=== PATIENT | male | born 1975 | race Caucasian/White ===

== ENCOUNTER 2016-12-21 08:36 | Day surgery (SDC) | payer OTHER ==
--- NOTE | 2016-12-17 18:47 | CONS ---
Date/Time of Note Date/Time of Note DATE: 12/17/16 TIME: 18:38 Assessment/Plan Assessment/Plan Problems: (1) Rotator cuff tear, left Status: Chronic Comment: Operative consultation prior to repair.-At this time I find Mr. Angulo to be an acceptable surgical candidate and concur with your plans to proceed with surgery now that he is been seen by cardiology. His initial EKG had some modest changes and to be thorough and protective we had him checked out. Dr. Taylor was gracious enough to do this in an expeditious fashion is now cleared for surgery as an average surgical risk as compared to his age- matched peers. Qualifiers: Qualified Code: M75.102 - Tear of left rotator cuff, unspecified tear extent (2) Diabetes mellitus type 2 in nonobese Status: Chronic Comment: Will continue on his medication regimen. (3) Nonalcoholic fatty liver disease without nonalcoholic steatohepatitis (GOOD) Status: Chronic Comment: Noted. (4) Osteoarthritis Status: Chronic Comment: Noted. Qualifiers: Qualified Code: M19.91 - Primary osteoarthritis, unspecified site Consultation Date/Type/Reason Admit Date/Time December 21 2016 Date of Consultation: Dec 16, 2016 Type of Consultation: Preoperative medical consultat Reason for Consultation Preop for medical clearance prior to elective surgery Referring Provider: FELIPA CRANE MD Hx of Present Illness Charming 41-year-old [place] Citizen male being brought in electively for repair left shoulder rotator cuff injury. Please note I had him seen by cardiology for clearance as well. He has been cleared for surgery Constitutional: no complaints Eyes: no complaints ENT: no complaints Respiratory: no complaints Cardiovascular: no complaints (Recent states he is able to climb several flights of stairs.) Gastrointestinal: no complaints Genitourinary: no complaints Musculoskeletal: no complaints Skin: no complaints Neurologic: no complaints Endocrine: no complaints Lymphatic: no complaints Psychological: nl mood/affect, no complaints Immunologic: no complaints Past Medical History 1) diabetes mellitus type 2, 2) nonalcoholic fatty liver disease, 3) osteoarthritis, 4) lumbar disc disease, 5) left shoulder torn rotator cuff, 6) usual childhood diseases Past Surgical History Past Surgical Hx: no surgical history Family History Significant Family History: diabetes, hypertension, other (NO Family history of anesthesia reactions) Social History Alcohol Use: none Smoking Status: Never smoker Drug Use: none Other Social History Born in [place] and raised. Lived in the [place] for [place] years. He lives with spouse, mother, brothers. Professional dispatcher motor vehicle. Exam/Review of Systems Vital Signs Vitals Blood pressure 120/70; pulse 88; temperature 98.0; height 5 feet 8 inches; weight 204.2 pounds Exam Constitutional: alert, oriented Psych: nl mood/affect, no complaints Head: atraumatic, normocephalic Eyes: EOMI, nl conjunctiva, nl lids, nl sclera ENMT: mucosa pink and moist, nl external ears & nose, nl lips & teeth, nl nasal mucosa & septum Neck: non-tender, supple Respiratory: clear to auscultation, normal air movement Cardiovascular: S4, nl pulses, regular rate and rhythm Gastrointestinal: nl liver, spleen, non-tender, soft Musculoskeletal: nl extremities to inspection, nl gait and stance, other (Good range of motion of the left shoulder) Extremities: normal pulses Neurological: RN TELEMETRY II-XII intact, nl mental status, nl speech, nl strength Skin: nl turgor, rash or lesions Results Lab tests demonstrated blood sugar of 135 normal CBC normal renal function normal coags. Please see faxed results. Copies To: CC: FELIPA CRANE MD; GAGE TAYLOR MD, JOSHUA A MD Dec 17, 2016 18:47
[2016-12-21] VITALS (18 sets, daily range): BP systolic 126–157; BP diastolic 78–100; PULSE 87–106; RESP 12–22; Ht 172.7 cm; Wt 90.4 kg
[~2016-12-21] VITALS: Ht 172.7 cm; Wt 90.4 kg
[2016-12-21] MEDS ORDERED: METF1000 PO (09:38)
[2016-12-21] MEDS ORDERED: GLIP5TAB13 PO (09:39)
[2016-12-21] MEDS ORDERED: MIDAZOLAM 1 MG/ML 2 ML INJ ONE (11:44)
[2016-12-21] MEDS ORDERED: FENTAnyl 50 MCG/ML VIAL ONE ×3 (11:45→15:59)
[2016-12-21] MEDS ORDERED: ROPIVACAINE 0.5 % 30 ML VIAL ONE ×2 (11:46→12:35)
[2016-12-21] MEDS ORDERED: POVIDONE IODINE 10% 28.4 GM OINT ONE (12:35)
[2016-12-21] MEDS ORDERED: EPINEPHrine 1 MG/ML 30 ML INJ ONE (12:35)
[2016-12-21] MEDS ORDERED: SOD CHLORIDE 0.9% 1,000 ML IV SCH (12:45)
[2016-12-21] MEDS ORDERED: morphine 2 MG INJ IV PRN (13:00)
[2016-12-21] MEDS ORDERED: OXYCODONE/ACETAMINOPHEN (5/325) TAB PO PRN ×2 (13:00)
[2016-12-21] MEDS ORDERED: ONDANSETRON 4 MG INJ IV PRN ×2 (13:00→15:30)
[2016-12-21] MEDS ORDERED: PROPOFOL 20 ML ONE (13:42)
[2016-12-21] MEDS ORDERED: hydrALAzine 20 MG INJ ONE (14:00)
[2016-12-21] MEDS ORDERED: morphine 10 MG INJ ONE (14:25)
[2016-12-21] MEDS ORDERED: LIDOCAINE 2% (SDV) 5 ML INJ ONE (15:21)
[2016-12-21] MEDS ORDERED: ROCURONIUM 50 MG INJ ONE (15:21)
[2016-12-21] MEDS ORDERED: ONDANSETRON 4 MG INJ ONE ×2 (15:21→16:00)
[2016-12-21] MEDS ORDERED: CEFAZOLIN 1 GM INJ ONE (15:21)
--- NOTE | 2016-12-21 15:26 | OPPN ---
Date/Time of Note Date/Time of Note DATE: 12/21/16 TIME: 15:25 Operative Report Preoperative Diagnosis Left shoulder impingement Postoperative Diagnosis left shoulder impingement Operation/Procedure Performed left shoulder arthroscopy, subacromial decompression, extensive debridement, mini-jose miguel Provider: FELIPA CRANE MD pathology assistant: SIRENA RENE MD Anesthesia Type: general Estimated blood loss: minimal Transfusion Required: no Specimen: none Grafts/Implants: none Complications: no FELIPA CRANE MD Dec 21, 2016 15:26
[2016-12-21] MEDS ORDERED: METOCLOPRAMIDE 10 MG INJ IV PRN (15:30)
[2016-12-21] MEDS ORDERED: hydrALAzine 20 MG INJ IV PRN (15:30)
[2016-12-21] MEDS ORDERED: DIPHENHYDRAMINE 50 MG INJ IV PRN (15:30)
[2016-12-21] MEDS ORDERED: NALOXONE (0.4 MG/ML) INJ IV PRN (15:30)
[2016-12-21] MEDS ORDERED: LABETALOL HCL 20MG INJ IV PRN (15:30)
[2016-12-21] MEDS ORDERED: MEPERIDINE 25 MG INJ IV PRN (15:30)
[2016-12-21] MEDS ORDERED: HYDROmorphONE (0.2 MG/ML) 10ML SYG IV PRN ×2 (15:30)
[2016-12-21] MEDS: FENTAnyl 50 MCG/ML VIAL IV PRN ×2 (16:01→16:15)
--- NOTE | 2016-12-21 17:31 | OPR ---
DATE OF OPERATION: 12/21/2016 SURGEON: Manjit Morfin MD [employer] COUNSELOR: Laina Phoenix MD PREOPERATIVE DIAGNOSIS: Left shoulder impingement. Right tear rotator cuff. POSTOPERATIVE DIAGNOSES: 1. Left shoulder impingement. 2. Tearing of the anterior and posterior labrum. 3. Chondromalacia grade 2, small areas posterior humeral head. 4. Partial tear rotator cuff, A1, B1. OPERATION PERFORMED: 1. Arthroscopy, left shoulder. 2. Extensive debridement of the left shoulder. 3. Subacromial decompression. 4. Sarah excision after distal clavicle. ANESTHESIA: General with interscalene block. OPERATIVE PROCEDURE: Patient was taken operating and placed supine position, satisfactory interscalene block was done, satisfactory general endotracheal anesthesia was administered. The patient was rolled in the right lateral decubitus position and secured with a walker bag and kidney rest. All areas were carefully padded with axillary roll. Two grams of Ancef given intravenously. The shoulder exam under anesthesia revealed full range of motion with good stability. The left shoulder was prepped and draped in usual manner and suspended traction. Posterior and anterior portals were made. The biceps was smooth and glistening, attachment was normal. The posterior labrum had tearing, posterior recess was intact. Glenoid had some grade 2 chondromalacia inferiorly. The rotator cuff had some mild fraying along the supraspinatus A1 the attachment was normal. Humeral head was smooth and glistening, Humeral head. as mentioned posteriorly with the grade 2 chondromalacia. The subscapularis was intact with a little partial tear of the superior middle and inferior glenohumeral were intact. There was fraying of the anterior labrum. Shaver was inserted. The rotator cuff was debrided. The anterior and posterior labrum were debrided. Chondroplasty performed along the humeral head and the labrum inferiorly was debrided. After complete debridement, the spinal needle was inserted anteriorly and #1 PDS was placed through it, used as a suture marker. The patient was then placed in the Bursac position and a subtotal bursectomy was performed. SUBACROMIAL DECOMPRESSION: The entire subacromial space was cleared of all debris and synovitis in the soft tissue. There was 5 mm of the anterior acromial spur, 5 mm acromion was removed from posterior to anterior. The coracoacromial ligament was released and the spur was removed, until the acromion was nice and flat. The capsule of the distal clavicle was relatively intact, it was debrided on the under surface minimal bone was removed, because that looks to be reasonably intact, without a significant overhang. The rotator cuff was carefully evaluated where a suture anchor was, there was partial tearing of the rotator cuff, B2. No other abnormalities were seen. Complete rotator cuff tear was not noted. The shoulder was irrigated clear. Wounds were closed with #3-0 black nylon. Compression dressing was applied, as well as an ice pack and UltraSling. The patient was brought to recovery room in stable condition. At the end of the procedure sponge, needle count was correct. The patient tolerated surgery well. [employer] COUNSELOR ORTHOPEDIC SURGEON: During the procedure an equal opportunity assistant orthopedic surgeon was used at my request. The equal opportunity assistant helped with manipulating the shoulder, manipulating the arthroscope and assisting with bone spur removal. Without a skilled orthopedic surgeon assisting me, this could not have been done therefore, should be compensated appropriately. Dictated By: Manjit Morfin MD /stella/dheeraj /Document#: [id number] [facility]
== END 2016-12-21 18:10 | disposition home or self-care (01) ==
LOC: SDS 08:36
PROVIDERS: ATTEND Orthopaedic Surgery
DX: M75.42 Impingement syndrome of left shoulder (principal); M75.102 Unspecified rotator cuff tear or rupture of left shoulder, not specified as traumatic; M94.212 Chondromalacia, left shoulder; S43.492D Other sprain of left shoulder joint, subsequent encounter; X58.XXXD Exposure to other specified factors, subsequent encounter; I10 Essential (primary) hypertension; E11.9 Type 2 diabetes mellitus without complications; E78.5 Hyperlipidemia, unspecified; E66.9 Obesity, unspecified; Z68.30 Body mass index [BMI] 30.0-30.9, adult
CPT/HCPCS: 29824; 29826; 29827; 82962; J0171; J0690; J2250; J2270; J2405; J2795; J3010; J0360